=== PATIENT | male | born 1980 | race Caucasian/White ===

== ENCOUNTER 2024-10-17 13:47 | Emergency (ER) | payer OTHER ==
[~2024-10-17] VITALS: Ht 175.3 cm; Wt 89.0 kg
[2024-10-17 13:53] VITALS: O2SAT 98
[2024-10-17 13:55] VITALS: TEMP 37
[2024-10-17] MEDS ORDERED: LIDO-53 TP (17:01)
[2024-10-17] MEDS ORDERED: IBUP-2029 MT (17:01)
[2024-10-17 17:25] VITALS: BP 111/75; PULSE 80; RESP 16
[2024-10-17] MEDS: KETOROLAC 30MG/ML VIAL IM ONE (17:25)
== END 2024-10-17 17:26 | disposition home or self-care (01) ==
LOC: ER 13:47
DX: M25.512 Pain in left shoulder (principal); Z79.899 Other long term (current) drug therapy
CPT/HCPCS: 99283; 73030; 96372; J1885